=== PATIENT | male | born 1995 | race Caucasian/White ===

== ENCOUNTER 2020-05-18 11:23 | Emergency (ER) | payer MEDICAID ==
[2020-05-18 11:30] VITALS: BP 124/54
[2020-05-18] MEDS ORDERED: HYDROcodone/ACETAMINOPHEN 5-325 MG TAB PO ONE (11:34)
--- NOTE | 2020-05-18 11:41 | Emergency Department Report ---
ED Upper Extremity Inj HPI - General Chief Complaint: Extremity Injury, Upper Stated Complaint: RT ARM INJURY/FALL Time Seen by Provider: 05/18/20 11:33 Source: patient Mode of arrival: Ambulatory Limitations: No Limitations - History of Present Illness Initial Comments: pt is a 25 yo male who presents to the ED with c/o a fall that occurred approximately one hour [employer]. he states he was carrying things in his arms and accidentally tripped and fell. he states to avoid hitting his face he landed on his right shoulder and right hand. he is c/o right shoulder, right clavicle, and right thumb pain. he is right hand dominant. he states he has a hx of a right thumb fracture which he states he wore a cast for. he denies any numbness or weakness. no other pmhx. no allergies to meds. he denies any other injury. - Related Data Previous Rx's Medication Instructions Recorded Last Taken Type Naproxen [EC-Naprosyn] 500 mg PO BID PRN #20 tablet. 05/18/20 Unknown Rx Allergies Allergy/AdvReac Type Severity Reaction Status Date / Time No Known Allergies Allergy Unverified 05/18/20 11:24 ED Review of Systems ROS: Stated complaint: RT ARM INJURY/FALL Other details as noted in HPI Comment: All other systems reviewed and negative ED Past Medical Hx - Past Medical History Previous Medical History?: No - Surgical History Past Surgical History?: No - Social History Smoking Status: Never Smoker Substance Use Type: None - Medications Home Medications: Home Medications Medication Instructions Recorded Confirmed Last Taken Type Naproxen [EC-Naprosyn] 500 mg PO BID PRN #20 tablet. 05/18/20 Unknown Rx ED Physical Exam - General Limitations: No Limitations General appearance: alert, in no apparent distress - Head Head exam: Present: atraumatic, normocephalic - Eye Eye exam: Present: normal appearance - ENT ENT exam: Present: mucous membranes moist - Respiratory Respiratory exam: Absent: respiratory distress, accessory muscle use - Extremities Exam Extremities exam: Present: other (there is ecchymosis present to the posterior right shoulder in the trapezius region, no bony ttp of the right shoulder or clavicle, clavicles are equal, ttp of the right thumb, no wrist ttp, no snuffbox ttp, no deformity, FROM of the RUE, neurovascularly intact) - Neurological Exam Neurological exam: Present: alert, oriented X3 - Psychiatric Psychiatric exam: Present: normal affect, normal mood - Skin Skin exam: Present: warm, dry ED Course Vital Signs 05/18/20 05/18/20 11:28 12:14 Temperature 98.2 F Pulse Rate 63 Respiratory 18 18 Rate Blood Pressure 124/54 [Left] O2 Sat by Pulse 98 Oximetry ED Medical Decision Making - Radiology Data Radiology results: report reviewed Ordering Physician: CRISTINA COREY Date of Service: 05/18/20 Procedure(s): XR shoulder 2+V RT Accession Number(s): [id number] cc: CRISTINA COREY Fluoro Time In Minutes: RIGHT SHOULDER 3 VIEW(S) INDICATION / CLINICAL INFORMATION: fall, right shoulder/clavicle pain COMPARISON: None available. FINDINGS: BONES / JOINT(S): No acute fracture or subluxation. No significant arthritis. SOFT TISSUES: No significant abnormality. ADDITIONAL FINDINGS: None. Signer Name: Mihir Tovar MD Signed: 05/18/2020 12:22 PM Workstation Name: [id number] Transcribed By: TL Dictated By: Mihir Tovar MD Electronically Authenticated By: Mihir Tovar MD Signed Date/Time: 05/18/201221 DD/ 21 TD/TT: Ordering Physician: CRISTINA COREY Date of Service: 05/18/20 Procedure(s): XR hand 3+V RT Accession Number(s): [id number] cc: CRISTINA COREY Fluoro Time In Minutes: RIGHT HAND 3 VIEW(S) INDICATION / CLINICAL INFORMATION: fall, right thumb pain, hx of previous fracture COMPARISON: None available. FINDINGS: BONES / JOINT(S): No acute fracture or subluxation. No significant arthritis. SOFT TISSUES: No significant abnormality. ADDITIONAL FINDINGS: None. Signer Name: Mihir Tovar MD Signed: 05/18/2020 12:22 PM Workstation Name: [id number] Transcribed By: TL Dictated By: Mihir Tovar MD Electronically Authenticated By: Mihir Tovar MD Signed Date/Time: 05/18/201221 DD/ 21 TD/TT: - Medical Decision Making pt is a 25 yo male who presents to the ED with c/o a fall that occurred approximately one hour [employer]. he states he was carrying things in his arms and accidentally tripped and fell. he states to avoid hitting his face he landed on his right shoulder and right hand. he is c/o right shoulder, right clavicle, and right thumb pain. he is right hand dominant. he states he has a hx of a right thumb fracture which he states he wore a cast for. he denies any numbness or weakness. no other pmhx. no allergies to meds. he denies any other injury. vitals are normal. on exam: there is ecchymosis present to the posterior right shoulder in the trapezius region, no bony ttp of the right shoulder or clavicle, clavicles are equal, ttp of the right thumb, no wrist ttp, no snuffbox ttp, no deformity, FROM of the RUE, neurovascularly intact. XR right hand: BONES / JOINT(S): No acute fracture or subluxation. No significant arthritis. SOFT TISSUES: No significant abnormality. ADDITIONAL FINDINGS: None. XR right shoulder: BONES / JOINT(S): No acute fracture or subluxation. No significant arthritis.SOFT TISSUES: No significant abnormality. ADDITIONAL FINDINGS: None. Pain medication while in the emergency department as he did not drive and symptoms improved. Discussed all results with patient. Patient placed in velcro thumb spica splint and given orthopedic follow-up. Given prescription for naproxen. Advised patient please take medication as prescribed as needed. may use ice for 15 minutes at a time, rest, elevation of the arm. follow up with a primary care doctor. follow up with an orthopedic doctor. return to the emergency room for any new or worsening symptoms. - Differential Diagnosis Strain, sprain, fracture, dislocation, contusion, tendinitis Critical care attestation.: If time is entered above; I have spent that time in minutes in the direct care of this critically ill patient, excluding procedure time. ED Disposition Clinical Impression: Pain of right thumb Fall Qualifiers: Encounter type: initial encounter Qualified Code(s): W19.XXXA - Unspecified fall, initial encounter Right shoulder pain Qualifiers: Chronicity: acute Qualified Code(s): M25.511 - Pain in right shoulder Disposition: TO HOME OR SELFCARE Is pt being admited?: No Does the pt Need Aspirin: No Condition: Stable Instructions: Musculoskeletal Pain Additional Instructions: please take medication as prescribed as needed. may use ice for 15 minutes at a time, rest, elevation of the arm. follow up with a primary care doctor. follow up with an orthopedic doctor. return to the emergency room for any new or worsening symptoms. Prescriptions: Naproxen [EC-Naprosyn] 500 mg PO BID PRN #20 tablet.dr GRANADO Reason: pain Referrals: PRIMARY MD NORMA [Primary Care Provider] - 3-5 Days MELODY AMAYA MD [Staff Physician] - 3-5 Days [facility] [Provider Group] - 3-5 Days Time of Disposition: 12:35 Print Language: DANISH
--- NOTE | 2020-05-18 12:27 | XRay Report ---
RIGHT HAND 3 VIEW(S) INDICATION / CLINICAL INFORMATION: fall, right thumb pain, hx of previous fracture COMPARISON: None available. FINDINGS: BONES / JOINT(S): No acute fracture or subluxation. No significant arthritis. SOFT TISSUES: No significant abnormality. ADDITIONAL FINDINGS: None. Signer Name: Mihir Tovar MD Signed: 05/18/2020 12:22 PM Workstation Name: [id number]
--- NOTE | 2020-05-18 12:27 | XRay Report ---
RIGHT SHOULDER 3 VIEW(S) INDICATION / CLINICAL INFORMATION: fall, right shoulder/clavicle pain COMPARISON: None available. FINDINGS: BONES / JOINT(S): No acute fracture or subluxation. No significant arthritis. SOFT TISSUES: No significant abnormality. ADDITIONAL FINDINGS: None. Signer Name: Mihir Tovar MD Signed: 05/18/2020 12:22 PM Workstation Name: [id number]
== END 2020-05-18 12:54 | disposition home or self-care (01) ==
LOC: ED 11:23
DX: M25.511 Pain in right shoulder (principal); M79.644 Pain in right finger(s); Z79.899 Other long term (current) drug therapy; W01.0XXA Fall on same level from slipping, tripping and stumbling without subsequent striking against object, initial encounter; Y93.89 Activity, other specified; Y92.89 Other specified places as the place of occurrence of the external cause; Y99.8 Other external cause status